=== PATIENT | male | born 1940 | race Caucasian/White ===

== ENCOUNTER 2023-02-14 09:05 | Outpatient (CLI) | payer MEDICARE ==
[2023-02-14] MEDS ORDERED: Magnevist 469MG/ML 20 ML VIAL ONE (10:15)
== END 2023-02-14 09:06 | disposition home or self-care (01) ==
LOC: CSHMRI 09:05
PROVIDERS: ATTEND Family Medicine
DX: R51.9 Headache, unspecified (principal); I63.81 Other cerebral infarction due to occlusion or stenosis of small artery
CPT/HCPCS: 70553; 82565

== ENCOUNTER 2023-05-21 14:17 | Outpatient (CLI) | payer MEDICARE | END 2023-05-21 14:18 | disposition home or self-care (01) | LOC: CSHMRI 14:17 | PROVIDERS: ATTEND Family Medicine | DX: G44.209 Tension-type headache, unspecified, not intractable (principal); M54.2 Cervicalgia; M47.12 Other spondylosis with myelopathy, cervical region | CPT/HCPCS: 72141 ==